=== PATIENT | female | born 1970 | race Caucasian/White ===

== ENCOUNTER 2016-05-22 15:12 | Emergency (ER) | payer BC ==
[2016-05-22 15:58] VITALS: BP 150/88
--- NOTE | 2016-05-22 16:16 | ER Document Report ---
ED Medical Screen (RME) - General Chief Complaint: Neck and Upper Back Pain Stated Complaint: LEFT SIDE PAIN Notes: Patient says that she awakened yesterday morning with pain in her upper left back and neck area. Last night, the pain goes down her left shoulder and left arm into her left hand. Has never had this previously. Feels a little bit short of breath. Pain is primarily there in the left neck region and with movement. No history of any unusual activity. Works at [employer] and work to their Sunday night before this pain was noted yesterday morning. Has not had a cough or cold or chest congestion. No fevers. Patient has no history of heart disease. She has a history of hypertension, but not on any current medication. Not diabetic. Does smoke cigarettes. TRAVEL OUTSIDE OF THE [place] IN LAST 30 DAYS: No - Related Data Allergies/Adverse Reactions: No Known Allergies Allergy (Verified 03/10/14 19:45) Past Medical History - Social History Family history: Reviewed & Not Pertinent Pulmonary Medical History: Reports: Hx Asthma, Hx COPD Neurological Medical History: Reports: Hx Migraine Renal/ Medical History: Denies: Hx Peritoneal Dialysis Psychiatric Medical History: Reports: Hx Anxiety, Hx Depression - Immunizations Hx Diphtheria, Pertussis, Tetanus Vaccination: Yes Physical Exam - Vital signs Vitals: Temp Pulse Resp BP Pulse Ox 99.2 F 78 18 150/88 H 98 05/22/16 15:55 05/22/16 15:55 05/22/16 15:55 05/22/16 15:55 05/22/16 15:55 Course - Vital Signs Vital signs: Temp Pulse Resp BP Pulse Ox 99.2 F 78 18 150/88 H 98 05/22/16 15:55 05/22/16 15:55 05/22/16 15:55 05/22/16 15:55 05/22/16 15:55
[2016-05-22 16:29] LABS: ABSOLUTE BASOPHILS # (AUTO) 0.1 10^3/uL (0.0-0.2); ABSOLUTE EOSINOPHILS # (AUTO) 0.2 10^3/uL (0.0-0.6); ABSOLUTE LYMPHOCYTES (AUTO) 3.3 10^3/uL (0.5-4.7); ABSOLUTE MONOCYTES (AUTO) 0.4 10^3/uL (0.1-1.4); ABSOLUTE NEUT (AUTO) 4.9 10^3/uL (1.7-8.2); BASOPHILS % (AUTO) 0.8 % (0-2); EOSINOPHILS % (AUTO) 2.7 % (0-6); HEMATOCRIT 38.4 % (36.0-47.0); HEMOGLOBIN 13.2 g/dL (12.0-15.5); HGB HCT DIFFERENCE 1.2; LYMPHOCYTES % (AUTO) 36.6 % (13-45); MEAN CORPUSCULAR HEMOGLOBIN 32.1 pg (27.0-33.4); MEAN CORPUSCULAR HGB CONC 34.5 g/dL (32.0-36.0); MEAN CORPUSCULAR VOLUME 93 fl (80-97); RED BLOOD COUNT 4.12 10^6/uL (3.72-5.28); RED CELL DISTRIBUTION WIDTH 13.1 % (11.5-14.0); SEGMENTED NEUTROPHILS % (AUTO) 54.9 % (42-78)
[2016-05-22 16:56] LABS: ALANINE AMINOTRANSFERASE 26 U/L (9-52); ALBUMIN 4.7 g/dL (3.5-5.0); ALKALINE PHOSPHATASE 56 U/L (38-126); ANION GAP 13 (5-19); ASPARTATE AMINO TRANSFERASE 23 U/L (14-36); BILIRUBIN,DIRECT 0.3 mg/dL (0.0-0.4); BILIRUBIN,TOTAL 0.6 mg/dL (0.2-1.3); BLOOD UREA NITROGEN 10 mg/dL (7-20); CALCIUM 10.2 mg/dL (8.4-10.2); CARBON DIOXIDE 24 mmol/L (22-30); CHLORIDE 106 mmol/L (98-107); CREATININE RESULT 0.65 mg/dL (0.52-1.25); GLUCOSE 90 mg/dL (75-110); POTASSIUM 4.4 mmol/L (3.6-5.0); SODIUM 142.7 mmol/L (137-145); TOTAL PROTEIN 8.1 g/dL (6.3-8.2)
[2016-05-22 17:09] LABS: CREATINE KINASE MB 1.53 ng/mL (<4.55)
[2016-05-22 17:10] LABS: TROPONIN I < 0.012 ng/mL
--- NOTE | 2016-05-22 18:34 | ER Document Report ---
ED Neck/Back Problem - General Mode of Arrival: Ambulatory TRAVEL OUTSIDE OF THE [place] IN LAST 30 DAYS: No - HPI Patient complains to provider of: Pain, Upper back Associated symptoms: Other - See above <FABIEN SKELTON - Last Filed: 05/22/16 20:21> <ROHAN ROSS - Last Filed: 05/22/16 21:22> - General Chief Complaint: Neck and Upper Back Pain Stated Complaint: back pain Notes: Patient is a 46 year old female who presents to the emergency department complaining of back pain onset yesterday. Patient states that the pain starts in her neck and travels down her back and into her left arm and is exacerbated by walking. Patient believes she may have slept on it wrong. Patient states she is not taking anything at home for the pain. Patient has taken Flexeril in the past and requests something different to help with the pain. (FABIEN SKELTON) - Related Data Allergies/Adverse Reactions: No Known Allergies Allergy (Verified 03/10/14 19:45) Past Medical History - General Information source: Patient - Social History Smoking Status: Unknown if Ever Smoked Family History: Reviewed & Not Pertinent Patient has suicidal ideation: No Pulmonary Medical History: Reports: Hx Asthma, Hx COPD Neurological Medical History: Reports: Hx Migraine Psychiatric Medical History: Reports: Hx Anxiety, Hx Depression - Immunizations Hx Diphtheria, Pertussis, Tetanus Vaccination: Yes <FABIEN SKELTON - Last Filed: 05/22/16 20:21> Review of Systems - Review of Systems Constitutional: No symptoms reported EENT: No symptoms reported Cardiovascular: No symptoms reported Respiratory: No symptoms reported Gastrointestinal: No symptoms reported Genitourinary: No symptoms reported Female Genitourinary: No symptoms reported Musculoskeletal: See HPI, Back pain, Neck pain Skin: No symptoms reported Hematologic/Lymphatic: No symptoms reported Neurological/Psychological: No symptoms reported -: Yes All other systems reviewed and negative <FABIEN SKELTON - Last Filed: 05/22/16 20:21> Physical Exam - Vital signs Interpretation: Normal - General General appearance: Appears well, Alert - HEENT Head: Normocephalic, Atraumatic Eyes: Normal Pupils: PERRL Neck: Other - Tenderness to palpation over left paraspinal muscles left trapezius - Respiratory Respiratory status: No respiratory distress Chest status: Nontender Breath sounds: Normal Chest palpation: Normal - Cardiovascular Rhythm: Regular Heart sounds: Normal auscultation Murmur: No - Abdominal Inspection: Normal Distension: No distension Bowel sounds: Normal Tenderness: Nontender Organomegaly: No organomegaly - Back Back: Normal, Tender - Tenderness to palpation over left upper back. No midline tenderness to palpation - Extremities General upper extremity: Normal inspection, Nontender, Normal color, Normal ROM , Normal temperature General lower extremity: Normal inspection, Nontender, Normal color, Normal ROM , Normal temperature, Normal weight bearing. No: Mady's sign - Neurological Neuro grossly intact: Yes Cognition: Normal Orientation: AAOx4 [place] Coma Scale Eye Opening: Spontaneous [place] Coma Scale Verbal: Oriented [place] Coma Scale Motor: Obeys Commands [place] Coma Scale Total: 15 Speech: Normal Motor strength normal: LUE, RUE, LLE, RLE Sensory: Normal - Psychological Associated symptoms: Normal affect, Normal mood - Skin Skin Temperature: Warm Skin Moisture: Dry Skin Color: Normal <ROHAN ROSS - Last Filed: 05/22/16 21:22> - Vital signs Vitals: Temp Pulse Resp BP Pulse Ox 99.2 F 78 18 150/88 H 98 05/22/16 15:55 05/22/16 15:55 05/22/16 15:55 05/22/16 15:55 05/22/16 15:55 Course - Laboratory Result Diagrams: 05/22/16 16:15 05/22/16 16:15 <FABIEN SKELTON - Last Filed: 05/22/16 20:21> - Laboratory Result Diagrams: 05/22/16 16:15 05/22/16 16:15 - Diagnostic Test Radiology reviewed: Reports reviewed <ROHAN ROSS - Last Filed: 05/22/16 21:22> - Re-evaluation Re-evalutation: 05/22/16 21:21 No acute findings on blood work or x-rays. Patient will be discharged home with pain medication as requested and a work note. Neurovascularly intact. Stable for discharge. Return if any worsening or concerning symptoms. (ROHAN ROSS) - Vital Signs Vital signs: Temp Pulse Resp BP Pulse Ox 99.2 F 78 18 150/88 H 98 05/22/16 15:55 05/22/16 15:55 05/22/16 15:55 05/22/16 15:55 05/22/16 15:55 Discharge <FABIEN SKELTON - Last Filed: 05/22/16 20:21> <ROHAN ROSS - Last Filed: 05/22/16 21:22> - Discharge Clinical Impression: Upper back pain Neck strain Qualifiers: Encounter type: initial encounter Qualified Code(s): S16.1XXA - Strain of muscle, fascia and tendon at neck level, initial encounter Condition: Stable Disposition: HOME, SELF-CARE Instructions: Neck Injury (Cervical Strain) ([facility]), Upper Back Strain ([facility]) Additional Instructions: Please follow-up with a primary care doctor this week. Prescriptions: Carisoprodol [Soma] 350 mg PO DAILYP PRN #10 tablet PRN Reason: Oxycodone HCl/Acetaminophen [Percocet 5-325 mg Tablet] 1 - 2 tab PO TIDP PRN # 15 tablet PRN Reason: Forms: Elevated Blood Pressure, Return to Work Scribe Attestation: 05/22/16 21:21 I personally performed the services described in the documentation, reviewed and edited the documentation which was dictated to the scribe in my presence, and it accurately records my words and actions. (ROHAN ROSS) Scribe Documentation - Scribe Written by Beto:: beto Chu, 05/22/162025 acting as scribe for :: Claudia <FABIEN SKELTON - Last Filed: 05/22/16 20:21>
--- NOTE | 2016-05-22 18:54 | EKG REPORT ---
SEVERITY:- NORMAL ECG - SINUS RHYTHM : Confirmed by: Adama Hernandez MD 22-May-2016 18:54:08
== END 2016-05-22 18:47 | disposition home or self-care (01) ==
LOC: ER 15:12
DX: S16.1XXA Strain of muscle, fascia and tendon at neck level, initial encounter (principal); M54.6 Pain in thoracic spine; M54.2 Cervicalgia; M54.9 Dorsalgia, unspecified; Z79.899 Other long term (current) drug therapy; X58.XXXA Exposure to other specified factors, initial encounter
CPT/HCPCS: 36415; 71020; 72050; 80053; 82553; 84484; 85025; 93005; 93010; 99284